=== PATIENT | female | born 1980 | race Caucasian/White ===

== ENCOUNTER 2017-02-19 10:07 | Outpatient (CLI) | payer OTHER ==
--- NOTE | 2017-02-19 10:34 | Non Stress Test Report ---
Non Stress Test Datetime Report Generated by CPN: 02/19/2017 10:33 DEMOGRAPHIC EGA NST: 38.4 INDICATION Indication for Study: Ordered by Provider Indication for Study (NST) Other: AMA MONITORING Monitor Explained: Monitor Explained; Test Explained; Patient Verbalized Understanding Time on Monitor: 02/19/2017 10:17 Time off Monitor: 02/19/2017 10:37 NST Duration: 20 NST INTERVENTIONS NST Interventions: PO Hydration; Reposition Patient Physician Notified NST: DrTaylor Jt BABY A: [id number] BABY A Movement : Present Contraction Frequency : irr FHR Baseline : 150 Accelerations : 15X15 Decelerations : None Variability : Moderate 6-25bpm NST Review: Meets Criteria for Reactive NST NST Review and Verified By : SUMMER Paul Results: Reactive NST REPORT Report Trigger: Send Report
== END 2017-02-19 10:40 | disposition home or self-care (01) ==
LOC: LC 10:07
PROVIDERS: ATTEND Student in an Organized Health Care Education/Training Program
PROC: 4A1HXCZ Monitoring of Products of Conception, Cardiac Rate, External Approach (ICD-10-PCS; principal; 2017-02-19)
DX: O09.523 Supervision of elderly multigravida, third trimester (principal); Z3A.38 38 weeks gestation of pregnancy
CPT/HCPCS: 59025

== ENCOUNTER 2017-03-07 00:39 | Inpatient (IN) | payer OTHER ==
[2017-03-07] MEDS ORDERED: MISOPROSTOL 0.2 MG TABLET ONE (00:59)
[2017-03-07] MEDS ORDERED: OXYTOCIN/NORMAL SALINE 20 UNIT/1,000 ML RTUINJ ONE (01:00)
[2017-03-07] MEDS ORDERED: PENICILLIN G-K 5 MILLION UNIT VIAL ONE (01:00)
[2017-03-07] MEDS ORDERED: LIDOCAINE 1% INJ-PF (10 MG/ML) 30 ML SDV ONE ×2 (01:00→02:57)
[2017-03-07] MEDS ORDERED: PENICILLIN G POTASSIUM 5,000,000 UNIT in DEXTROSE 5%-WATER 100 ML IV ONE (01:03)
[2017-03-07] MEDS ORDERED: RINGERS SOLUTION,LACTATED 1,000 ML IV PRN (01:03)
[2017-03-07] MEDS ORDERED: PENICILLIN G-K 5 MILLION UNIT VIAL IV PRN (01:12)
[2017-03-07 01:27] LABS: ABSOLUTE EOSINOPHILS # (AUTO) 0.1 10^3/uL (0.0-0.6); ABSOLUTE LYMPHOCYTES (AUTO) 1.4 10^3/uL (0.5-4.7); ABSOLUTE MONOCYTES (AUTO) 0.9 10^3/uL (0.1-1.4); ABSOLUTE NEUT (AUTO) 8.8 10^3/uL (1.7-8.2); BASOPHILS % (AUTO) 0.3 % (0-2); EOSINOPHILS % (AUTO) 0.9 % (0-6); HEMATOCRIT 37.8 % (36.0-47.0); HEMOGLOBIN 12.9 g/dL (12.0-15.5); HGB HCT DIFFERENCE 0.9; LYMPHOCYTES % (AUTO) 12.3 % (13-45); MEAN CORPUSCULAR HEMOGLOBIN 30.1 pg (27.0-33.4); MEAN CORPUSCULAR HGB CONC 34.1 g/dL (32.0-36.0); MEAN CORPUSCULAR VOLUME 88 fl (80-97); MONOCYTES % (AUTO) 8.3 % (3-13); RED BLOOD COUNT 4.29 10^6/uL (3.72-5.28); RED CELL DISTRIBUTION WIDTH 13.2 % (11.5-14.0); SEGMENTED NEUTROPHILS % (AUTO) 78.2 % (42-78); WHITE BLOOD COUNT 11.2 10^3/uL (4.0-10.5)
[2017-03-07 01:32] LABS: APPEARANCE,URINE CLOUDY; BILIRUBIN,URINE NEGATIVE (NEGATIVE); GLUCOSE, URINE NEGATIVE (NEGATIVE); KETONES,URINE 20 mg/dL (NEGATIVE); LEUKOCYTE ESTERASE,URINE SMALL (NEGATIVE); NITRITE,URINE NEGATIVE (NEGATIVE); PROTEIN,URINE 30 mg/dL (NEGATIVE); UROBILINOGEN,URINE NEGATIVE mg/dL (<2.0)
[2017-03-07 01:52] LABS: URINE BARBITURATES SCREEN NEGATIVE; URINE METHADONE SCREEN NEGATIVE; URINE OPIATES LOW NEGATIVE; URINE PHENCYCLIDINE SCREEN NEGATIVE
[2017-03-07] MEDS ORDERED: FENTANYL CITRATE INJ/PF 100 MCG/2 ML AMPUL ONE (03:13)
[2017-03-07] MEDS ORDERED: MAGNESIUM HYDROXIDE SUSP 30 ML UDCUP PO PRN (03:43)
[2017-03-07] MEDS ORDERED: PROMETHAZINE HCL 25 MG SUPP.RECT PR PRN (03:43)
[2017-03-07] MEDS ORDERED: OXYTOCIN/NORMAL SALINE 20 UNIT/1,000 ML RTUINJ IV PRN (03:43)
[2017-03-07] MEDS ORDERED: PROMETHAZINE HCL 25 MG TABLET PO PRN (03:43)
[2017-03-07] MEDS ORDERED: DIBUCAINE 1% OINTMENT 28 GM TP PRN (03:43)
[2017-03-07] MEDS ORDERED: ACETAMINOPHEN 650 MG SUPP.RECT PR PRN (03:43)
[2017-03-07] MEDS ORDERED: DIPH/PERTUSS(ACELL)/TETANUS VAC/PF 0.5 ML SYR (>=10YO) IM PRN (03:43)
[2017-03-07] MEDS ORDERED: MEASLES,MUMPS&RUBELLA VACC/PF 0.5 ML VIAL SUBCUT PRN (03:43)
[2017-03-07] MEDS ORDERED: BENZOCAINE/MENTHOL AEROSOL SPRAY 56 ML TOP PRN (03:43)
[2017-03-07] MEDS ORDERED: NA PHOS,M-B/NA PHOS,DI-BA (ADULT) 133 ML ENEMA PR PRN (03:43)
[2017-03-07] MEDS ORDERED: PROMETHAZINE HCL INJ 25 MG/1 ML VIAL IV PRN (03:43)
[2017-03-07] MEDS ORDERED: GLYCERIN/WITCH HAZEL LEAF 1 EACH MED..PAD TP PRN (03:43)
[2017-03-07] MEDS ORDERED: ZOLPIDEM TARTRATE 5 MG TABLET PO PRN (03:43)
[2017-03-07] MEDS ORDERED: DIPHENHYDRAMINE HCL 25 MG CAPSULE PO PRN (03:43)
[2017-03-07] MEDS ORDERED: PSEUDOEPHEDRINE HCL 30 MG TABLET PO PRN (03:43)
[2017-03-07] MEDS ORDERED: ACETAMINOPHEN WITH CODEINE #3 TABLET PO PRN ×2 (03:43)
--- NOTE | 2017-03-07 04:19 | Delivery Summary ---
Del Sum A-C Datetime Report Generated by CPN: 03/07/2017 04:19 DELIVERY PERSONNEL DELIVERY PERSONNEL: [id number] Delivery Doctor:: Aide Waters MD Labor and Delivery Nurse:: Lola Adler RNoffset press operator Nurse:: Clare Suarez RN Commercial Census Taker/ZOO CARETAKER: Tina Toribio, ST MATERNAL INFORMATION Delivery Anesthesia: Pudendal Medications After Delivery: Pitocin Bolus-Please Comment; Pitocin Drip 20 Units/1000ml NSS Estimated Blood Loss (ml): 450 Maternal Complications: Precipitous Labor (<3hrs) Provider Comments: Pudendal block performed in the usual fashion after confirmation of c/c/+2. 20ml of lidocaine used and patient tolerated well. VMI delivered in DIANDRA presentation with tight nuchal cord and compound right arm. Shoulders and body delivered without difficulty. After delivery nuchal cord then reduced and cord doubly clamped and cut and infant to maternal abdomen. Placenta delivered intact spontaneously. FF at U after straight catheter performed and 3rd degree laceration repaired. Good hemostasis after repair. weight pending. APgars 9/9. Mother and baby stable upon provider leaving the room. LABOR SUMMARY EDC: 03/04/2017 00:00 Attempted: No Labor Anesthesia: None LABOR INFORMATION Reason for Induction: Not Applicable Onset of Labor: 03/07/2017 00:54 Complete Dilatation: 03/07/2017 02:27 Oxytocin: N/A Group B Beta Strep: positive Antibiotics # of Doses: 1 Antibiotics Time of Last Dose: 0110 Name of Antibiotic Given: penicillin Steroids Given: None Reason Steroids Not Administered: Not Applicable MEMBRANES Membranes Rupture Method: Artificial Rupture of Membranes: 03/07/2017 02:31 Length of Rupture (hr): 0.32 Amniotic Fluid Color: Clear Amniotic Fluid Amount: Small Amniotic Fluid Odor: None STAGES OF LABOR Stage 1 hr: 1 Stage 1 min: 33 Stage 2 hr: 0 Stage 2 min: 23 Stage 3 hr: 0 Stage 3 min: 4 Total Time in Labor hr: 2 Total Time in Labor min: 0 VAGINAL DELIVERY Episiotomy: None Laceration #1: Perineal Laceration Extension #1: Third Degree, IIIb (Greater than 50 percent ext anal sphincter thickness torn) Laceration Repair: Yes Laceration Repair Note: 3b perineal laceration repaired in layered fashion in the usual fashion. Rectal exam upon completion revealed no e/o occult 4th degree and revealed well approx anal sphincter Sponge Count Correct: Yes Sharps Count Correct: Yes CSECTION DELIVERY Primary Indication: N/A CSection Incidence: N/A Labor: N/A Elective: N/A CSection Incision: N/A BABY A INFORMATION Infant Delivery Date/Time: 03/07/2017 02:50 Method of Delivery: Vaginal Born in Route : No : N/A Forceps: N/A Vacuum Extraction: N/A Shoulder Dystocia : No PRESENTATION/POSITION BABY A Presentation: Cephalic Cephalic Presentation: Vertex Vertex Position: Right Occipital Anterior Breech Presentation: N/A PLACENTA INFORMATION BABY A Placenta Delivery Time : 03/07/2017 02:54 Placenta Method of Delivery: Spontaneous Placenta Status: Delivered SCORES BABY A Heart Rate 1 min: >100 bpm Resp Effort 1 min: Good Cry Reflex Irritability 1 min: Cough or Sneeze or Pulls Away Muscle Tone 1 min: Active Motion Color 1 min: Body [place], Extremities Blue Resuscitation Effort 1 min: N/A SCORE 1 MIN: 9 Heart Rate 5 min: >100 bpm Resp Effort 5 min: Good Cry Reflex Irritability 5 min: Cough or Sneeze or Pulls Away Muscle Tone 5 min: Active Motion Color 5 min: Body [place], Extremities Blue Resuscitation Effort 5 min: N/A SCORE 5 MIN: 9 INFORMATION BABY A Gestational Age at Delivery: 40.3 Gestational Status: Full Term- 39- 40.6 Weeks Outcome : Liveborn Condition : Stable Infant Sex: Male IDENTIFICATION BABY A Infant Verification Date/Time: 03/07/2017 02:58 ID Band Number: [id number] Mother's Name Verified: Yes RN Verifying Infant: R Marino, RNC Additional Verifying Personnel: K Erick, RN WEIGHT/LENGTH BABY A Birthweight (gm): 4370 Weight (lb): 9 Infant Weight (oz): 10 Length (in): 21.50 Infant Length (cm): 54.61 CORD INFORMATION BABY A No. Cord Vessels: 3 Nuchal Cord : Around Neck x1, Tight Nuchal Cord- Other: compound right arm Cord Blood Taken: Yes-For Storage (Mom's Blood type +) Infant Suction: None ASSESSMENT BABY A Complications: None Physical Findings at Delivery: Within Normal Limits Respirations: Appears Normal Skin to Skin: Yes Skin to Skin Time (min): 30 Rope Silica Machine Operator/ALS Called : No Infant Care By: Renee Suarez RN Transferred To: Remains with Mother SIGNATURES Signature: with User ID: [email or web address]
[2017-03-07] MEDS ORDERED: PENICILLIN G POTASSIUM 2,500,000 UNIT in DEXTROSE 5%-WATER 50 ML IV SCH (05:04)
--- NOTE | 2017-03-07 05:09 | Admission Physical ---
Datetime Report Generated by CPN: 03/07/2017 05:09 CURRENT ADMISSION Chief Complaint: Uterine Contractions Indication for Induction: Not Applicable Indication for Induction: Term, Intrauterine ; Active Labor Admit Plan: Admit to Unit; Initiate Labor Protocol ALLERGIES Medication Allergies: No Medication Allergies: No Known Allergies (03/07/2017) Medication Allergies: No Known Allergies (02/19/2017) ..................................................................... ..................................................................... ..................................................................... ..................................................................... ..................................................................... ................., Latex: No Latex Allergies OBSTETRICAL HISTORY EDC: 03/01/2017 00:00 : 2 Para: 1 Term: 1 : 0 SAB: 0 IAB: 0 Livin Gestational Diabetes: No Rh Sensitization: No Incompetent Cervix: No JAMES: No Infertility: No ART Treatment: No Uterine Anomaly: No IUGR: No Hx Previous C/S: No Macrosomia: No Hx Loss/Stillborn: No PIH: No Hx : No Placenta Previa/Abruption: No Depression/PP Depression: No PTL/PROM: No Post Hemorrhage: No Current Procedures: Ultrasound; NST Obstetrical History Comments: 2013 8 lb 6 oz G2 - current SEE RECORDS Alcohol: No Marijuana : No Cocaine: No Other Illicit Drugs: No Cigarettes: Never Smoker. 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: No Heart Disease: No Hosp/Surgery: Yes Autoimmune Disorder: No Anesthetic Complications: No Kidney Disease: No Abnormal Pap Smear: No Neuro/Epilepsy: No Psychiatric Disorders: No Other Medical Diseases: No Hepatitis/Liver Disease: No Significant Family History: No Varicosities/Phlebitis: No Trauma/Violence : No Thyroid Dysfunction: No Medical History Comments: wisdom teeth, IBS INFECTIOUS HISTORY Gonorrhea: No Genital Herpes: No Chlamydia: No Tuberculosis: No Syphilis: No Hepatitis: No HIV/AIDS Exposure: No Rash or Viral Illness: No HPV: No PHYSICAL EXAM General: Normal HEENT: Normal Neurologic: Normal Thyroid: Normal Heart: Normal Lungs: Normal Breast: Deferred Back: Normal Abdomen: Normal Genitourinary Exam: Normal Extremities: Normal DTRs: Normal Pelvic Type: Adequate Physical Exam Comments: pelvis proven to 8#6oz. Vital Signs: Reviewed; Within Normal Limits VAGINAL EXAM Dilatation: 8 Effacement: 100 Station: 1 Contraction Comments: q 3-5 MEMBRANES Membranes: Intact FETUS A EGA: 40.6 Monitoring: External US FHR- Baseline: 125 Variability: Moderate 6-25bpm Accelerations: 15X15 Decelerations: None FHR Category: Category I Presentation: Vertex Admit Comment: 37yo at 40+3ega presents for uterine ctx and noted to be 8cm in active labor. Pt was scheduled for IOL in am. No e/o of SROM at this time. GBS positive - PCN for GBS prophy initiated. Prengancy c/b AMA, NIPT negative. Was seen out of area from June until November. 1 hr GTT normal. Anatomy US normal per transfer records. Admit for active labor. Reassuring FWB and anticipate . EFW 02/28 8#13oz PLANS FOR LABOR AND DELIVERY Labor and Delivery: None Pain Management: Epidural Feeding Preference: Breast Benefit of Breast Feed Discussed: Yes Circumcision: Yes INFORMED CONSENT Informed Consent Obtained: Vaginal Delivery; Risks, Benefits and Alternatives Discussed Signature: with User ID: [email or web address]
[2017-03-07] MEDS: IBUPROFEN 800 MG TABLET PO SCH ×3 (05:54→21:08)
[2017-03-07] MEDS: PRENATAL VITAMIN W-O CA NO5/FE FUMARATE/FA CAPSULE PO SCH (10:51)
[2017-03-07] MEDS: FERROUS SULFATE 325 MG TABLET PO SCH ×2 (10:52→17:40)
[2017-03-07] MEDS: DOCUSATE SODIUM 100 MG CAPSULE PO SCH ×2 (10:52→17:40)
[2017-03-07] MEDS: SENNOSIDES/DOCUSATE 8.6-50 MG 1 EACH TABLET PO SCH (10:52)
[2017-03-07] MEDS: FAMOTIDINE 20 MG TABLET PO SCH ×2 (10:52→21:12)
--- NOTE | 2017-03-07 11:24 | PDOC PROGRESS REPORT ---
Subjective-OB Subjective: Post Delivery Day: 37 year old. Denies any needs at this time Doing well, no c/o, voiding, scant bleeding Physical Exam (OB) Vital Signs: Temp Pulse Resp BP Pulse Ox 98.7 F 89 18 106/53 L 99 03/07/17 09:13 03/07/17 09:13 03/07/17 09:13 03/07/17 09:13 03/07/17 09:13 Intake & Output 03/06/17 03/07/17 03/08/17 06:59 06:59 06:59 Weight 62.75 kg - PIH/Pre-Eclampsia Headache: Absent Epigastric Pain: No Visual Changes: No - Lochia Lochia Amount: Small 10-25 ml Lochia Color: Rubra/Red - Abdomen Description: Soft, Round Hernia Present: No Fundal Description: Firm Fundal Height: u/u - u/2 Objective-Diagnostic Laboratory: 03/07/17 01:17 03/07/17 03/07/17 03/07/17 00:52 01:17 01:17 WBC 11.2 H RBC 4.29 Hgb 12.9 Hct 37.8 MCV 88 MCH 30.1 MCHC 34.1 RDW 13.2 Plt Count 219 Seg Neutrophils % 78.2 H Lymphocytes % 12.3 L Monocytes % 8.3 Eosinophils % 0.9 Basophils % 0.3 Absolute Neutrophils 8.8 H Absolute Lymphocytes 1.4 Absolute Monocytes 0.9 Absolute Eosinophils 0.1 Absolute Basophils 0.0 Urine Color YELLOW Urine Appearance CLOUDY Urine pH 7.0 Ur Specific [place] 1.010 Urine Protein 30 H Urine Glucose (UA) NEGATIVE Urine Ketones 20 H Urine Blood SMALL H Urine Nitrite NEGATIVE Ur Leukocyte Esterase SMALL H Blood Type A POSITIVE Antibody Screen NEGATIVE Assessment and Plan(PN) - Assessment and Plan (1) GBS (group B Streptococcus carrier), +RV culture, currently Is this a current diagnosis for this admission?: Yes (2) Vaginal delivery Is this a current diagnosis for this admission?: Yes - Time Spent with Patient Time with patient: Less than 15 minutes Medications reviewed and adjusted accordingly: Yes - Disposition Anticipated Discharge: Home Within: within 24 hours
[2017-03-08] MEDS: IBUPROFEN 800 MG TABLET PO SCH ×3 (05:55→21:44)
[2017-03-08 07:40] LABS: HEMATOCRIT 31.9 % (36.0-47.0); HGB HCT DIFFERENCE 0.5; MEAN CORPUSCULAR HEMOGLOBIN 30.4 pg (27.0-33.4); MEAN CORPUSCULAR HGB CONC 33.9 g/dL (32.0-36.0); MEAN CORPUSCULAR VOLUME 90 fl (80-97); RED BLOOD COUNT 3.55 10^6/uL (3.72-5.28); RED CELL DISTRIBUTION WIDTH 13.6 % (11.5-14.0); WHITE BLOOD COUNT 11.9 10^3/uL (4.0-10.5)
[2017-03-08 07:59] LABS: HEMOGLOBIN 10.8 g/dL (12.0-15.5)
[2017-03-08] MEDS: PRENATAL VITAMIN W-O CA NO5/FE FUMARATE/FA CAPSULE PO SCH (11:10)
[2017-03-08] MEDS: FERROUS SULFATE 325 MG TABLET PO SCH ×2 (11:11→17:45)
[2017-03-08] MEDS: DOCUSATE SODIUM 100 MG CAPSULE PO SCH ×2 (11:11→17:46)
[2017-03-08] MEDS: FAMOTIDINE 20 MG TABLET PO SCH ×2 (11:15→21:45)
[2017-03-08] MEDS: SENNOSIDES/DOCUSATE 8.6-50 MG 1 EACH TABLET PO SCH (11:15)
--- NOTE | 2017-03-08 12:13 | PDOC PROGRESS REPORT ---
Subjective-OB Subjective: Post Delivery Day: 37 year old. Denies any needs at this time. Pt doing well, no complaints. Reports light bleeding, regular diet and voiding well. Physical Exam (OB) Vital Signs: Temp Pulse Resp BP Pulse Ox 97.9 F 91 18 118/72 100 03/08/17 07:27 03/08/17 07:27 03/08/17 07:27 03/08/17 07:27 03/08/17 07:27 Intake & Output 03/07/17 03/08/17 03/09/17 06:59 06:59 06:59 Weight 62.75 kg - PIH/Pre-Eclampsia Headache: Absent Epigastric Pain: No Visual Changes: No - Lochia Lochia Amount: Scant < 10 ml Lochia Color: Rubra/Red - Abdomen Description: Tender, Soft Hernia Present: No Fundal Description: Firm Fundal Height: u/u - u/2 Objective-Diagnostic Laboratory: 03/08/17 06:58 03/08/17 06:58 WBC 11.9 H RBC 3.55 L Hgb 10.8 L D Hct 31.9 L MCV 90 MCH 30.4 MCHC 33.9 RDW 13.6 Plt Count 204 Assessment and Plan(PN) - Assessment and Plan (1) Vaginal delivery Is this a current diagnosis for this admission?: Yes - Time Spent with Patient Time with patient: Less than 15 minutes Medications reviewed and adjusted accordingly: Yes - Disposition Anticipated Discharge: Home Within: within 24 hours
[2017-03-08] MEDS ORDERED: PROMETHAZINE HCL INJ 25 MG/1 ML VIAL IV PRN (15:30)
[2017-03-08] MEDS ORDERED: DIPH/PERTUSS(ACELL)/TETANUS VAC/PF 0.5 ML SYR (>=10YO) IM PRN (15:30)
[2017-03-08] MEDS ORDERED: ZOLPIDEM TARTRATE 5 MG TABLET PO PRN (15:30)
[2017-03-08] MEDS ORDERED: MAGNESIUM HYDROXIDE SUSP 30 ML UDCUP PO PRN (15:30)
[2017-03-08] MEDS ORDERED: MEASLES,MUMPS&RUBELLA VACC/PF 0.5 ML VIAL SUBCUT PRN (15:30)
[2017-03-08] MEDS ORDERED: KETOROLAC TROMETHAMINE INJ/PF 30 MG/1 ML SDV ONE (17:51)
[2017-03-09] MEDS: IBUPROFEN 800 MG TABLET PO SCH ×2 (05:50→14:00)
[2017-03-09 08:27] VITALS: BP 117/64
--- NOTE | 2017-03-09 08:49 | PDOC PROGRESS REPORT ---
Subjective-OB Subjective: Post Delivery Day: 37 year old. Denies any needs at this time. Ready to go home. Physical Exam (OB) Vital Signs: Temp Pulse Resp BP Pulse Ox 98.2 F 85 15 117/64 100 03/09/17 07:53 03/09/17 07:53 03/09/17 07:53 03/09/17 07:53 03/09/17 07:53 - PIH/Pre-Eclampsia Headache: Absent Epigastric Pain: No Visual Changes: No - Lochia Lochia Amount: Small 10-25 ml Lochia Color: Rubra/Red - Abdomen Description: Soft, Round Hernia Present: No Bowel Sounds: Normoactive Flatus Presence: Present Stool: Yes Fundal Description: Firm, Midline Fundal Height: u/u - u/2 Objective-Diagnostic Laboratory: 03/08/17 06:58 Assessment and Plan(PN) - Time Spent with Patient Medications reviewed and adjusted accordingly: Yes - Disposition Anticipated Discharge: Home
--- NOTE | 2017-03-09 08:56 | PDOC DISCHARGE SUMMARY ---
Final Diagnosis Discharge Date: 03/09/17 - Final Diagnosis (1) AMA (advanced maternal age) multigravida 35+ Is this a current diagnosis for this admission?: Yes (2) GBS (group B Streptococcus carrier), +RV culture, currently Is this a current diagnosis for this admission?: Yes (3) Vaginal delivery Is this a current diagnosis for this admission?: Yes Discharge Data - Discharge Medication Home Medications: 95/Iron Fum/Folic/Dha [ + Dha Combo Pack] 1 tab PO DAILY Docusate Sodium [Colace 100 mg Capsule] 100 mg PO BID #30 capsule 03/09/17 Gestational Age: 40.3 wks Reason(s) for Admission: Onset of Labor Procedures: Ultrasound Intrapartum Procedure(s): Spontaneous Vaginal Delivery Complication(s): Laceration-Perineal Laceration-Degree: 3rd - [place] Data Baby 1 Male at 1 minute: 9 at 5 minutes: 9 Weight: 4.366 kg Home with Mother: Yes Complications: No - Diagnosis Test Laboratory: Temp Pulse Resp BP Pulse Ox 98.2 F 85 15 117/64 100 03/09/17 07:53 03/09/17 07:53 03/09/17 07:53 03/09/17 07:53 03/09/17 07:53 03/07/17 03/07/17 03/08/17 00:52 01:17 06:58 RBC 4.29 3.55 L Hgb 12.9 10.8 L D Hct 37.8 31.9 L Urine Opiates Screen NEGATIVE - Discharge information/Instructions Discharge Activity: Activity As Tolerated, Balance Activity w/Rest, Pelvic Rest , Slowly Increase Activity, No tub bath Discharge Diet: Regular Disposition: HOME, SELF-CARE Follow up with: [facility] in: 4, Weeks
[2017-03-09] MEDS: PRENATAL VITAMIN W-O CA NO5/FE FUMARATE/FA CAPSULE PO SCH (10:38)
[2017-03-09] MEDS: DOCUSATE SODIUM 100 MG CAPSULE PO SCH (10:39)
[2017-03-09] MEDS: FERROUS SULFATE 325 MG TABLET PO SCH (10:39)
[2017-03-09] MEDS: SENNOSIDES/DOCUSATE 8.6-50 MG 1 EACH TABLET PO SCH (10:40)
[2017-03-09] MEDS: FAMOTIDINE 20 MG TABLET PO SCH (10:40)
== END 2017-03-09 15:55 | disposition home or self-care (01) | DRG 775 ==
LOC: LC 00:39 → LR 01:08 → 2N 05:08
PROVIDERS: ADMIT Student in an Organized Health Care Education/Training Program; ATTEND Student in an Organized Health Care Education/Training Program
PROC: 10E0XZZ Delivery of Products of Conception, External Approach (ICD-10-PCS; principal; 2017-03-07)
PROC: 0DQR0ZZ Repair Anal Sphincter, Open Approach (ICD-10-PCS; 2017-03-07)
DX: O99.824 Streptococcus B carrier state complicating childbirth (principal); O62.3 Precipitate labor; O69.1XX0 Labor and delivery complicated by cord around neck, with compression, not applicable or unspecified; O70.22 Third degree perineal laceration during delivery, IIIb; Z3A.40 40 weeks gestation of pregnancy; Z37.0 Single live birth
CPT/HCPCS: 36415; 80307; 81005; 85025; 85027; 86592; 86850; 86900; 86901; J1885; J2540; J2590; J3010; J3490